=== PATIENT | male | born 1990 | race Caucasian/White ===

== ENCOUNTER 2016-10-30 00:04 | Emergency (ER) | payer SELFPAY ==
[~2016-10-30] VITALS: Ht 160 cm; Wt 66.0 kg
[2016-10-30 03:44] VITALS: BP 132/85
== END 2016-10-30 03:58 | disposition left against medical advice (07) ==
LOC: ER 00:05
DX: M54.9 Dorsalgia, unspecified (principal); Z53.21 Procedure and treatment not carried out due to patient leaving prior to being seen by health care provider

== ENCOUNTER 2018-05-23 23:26 | Emergency (ER) | payer SELFPAY ==
[~2018-05-23] VITALS: Ht 162.6 cm; Wt 62.8 kg
[2018-05-24] MEDS ORDERED: BACITRACIN ZINC OINT UDPKT TOP ONE (01:45)
[2018-05-24] MEDS ORDERED: TETANUS, DIPHTHERIA, PERTUSSIS VAC/PF 0.5ML (>7YR OLD) IM ONE (01:45)
[2018-05-24 02:19] LABS: BASOPHILS % 1.5 % (0.0-2.0); EOSINOPHILS % 3.8 % (0.0-5.0); HEMOGLOBIN. 12.2 g/dL (14.0-18.0); LYMPHOCYTES % 21.7 % (20.0-50.0); MEAN CORPUSCULAR HEMOGLOBIN 32.4 pg (28.0-32.0); MEAN CORPUSCULAR VOLUME 95.8 fL (80.0-94.0); MEAN PLATELET VOLUME 7.1 fl (7.4-10.4); MONOCYTES % 13.7 % (2.0-8.0); NEUTROPHILS % 59.3 % (40.0-76.0); PLATELET 127 x1000/uL (130-400); RED BLOOD CELL COUNT 3.76 mill/uL (4.7-6.1); RED CELL DISTRIBUTION WIDTH 15.9 % (11.6-14.6)
[2018-05-24 03:31] VITALS: BP 112/69
== END 2018-05-24 03:32 | disposition home or self-care (01) ==
LOC: ER 23:26
DX: S41.111A Laceration without foreign body of right upper arm, initial encounter (principal); D64.9 Anemia, unspecified; W45.8XXA Other foreign body or object entering through skin, initial encounter; Y93.89 Activity, other specified; Y92.89 Other specified places as the place of occurrence of the external cause; Y99.8 Other external cause status
CPT/HCPCS: 12001; 36415; 90471; 90715; 99283